=== PATIENT | male | born 1980 | race Caucasian/White ===

== ENCOUNTER 2016-09-11 09:23 | Emergency (ER) | payer BC ==
[2016-09-11 09:35] VITALS: BP 111/64
--- NOTE | 2016-09-11 10:14 | UC ---
Allergic Reaction HPI - HPI Summary HPI Summary: c/o intermittent red, raised areas over his body since Tuesday. Woke up at 4 AM with lip swelling today. hies seem to have been better while at work, but worse once he came home at night. States the only change has been laundry detergent, and does have new loveseat which was from friends with cats. never had problem with cat allergy in past. Denies any difficulty breathing. Sx started 5 days ago on/off. he has had relief with benadryl and claritin with the rash. woke up at 4 AM today with lip swollen for the 1st time. he took benadryl at 4 AM and sx did get better. He denies any swelling in his tongue, throat, wheezing or any difficulty breathing. he has had this happen with Tide detergent as a child and 2 other times eating a spice that he can't figure out. He is an adventurous eater and is confident that he did not have any new foods this week. denies shellfish and nuts. His is home washing all the clothes in their previous detergent now. - History of Current Complaint Chief Complaint: UCAllergicReaction Stated Complaint: ALLERGIC REACTION Time Seen by Provider: 09/11/16 09:37 - Allergies/Home Medications Allergies/Adverse Reactions: Allergies Allergy/AdvReac Type Severity Reaction Status Date / Time No Known Allergies Allergy Verified 09/11/16 09:29 Home Medications: Home Medications Diphenhydramine HCl [Benadryl Allergy] 50 mg PO ONCE PRN 09/11/16 [History Confirmed 09/11/16] PMH/Surg Hx/FS Hx/Imm Hx Previously Healthy: Yes Endocrine History Of: Denies: Diabetes Cardiovascular History Of: Denies: Hypertension, Pacemaker/ICD Respiratory History Of: Denies: Asthma GI/ History Of: Denies: Renal Disease - Surgical History Surgical History: Yes Surgery Procedure, Year, and Place: wisdom teeth. hip reconstruction - Family History Known Family History: Positive: Hypertension - Social History Alcohol Use: Occasionally Substance Use Type: None Smoking Status (MU): Never Smoked Tobacco Have You Smoked in the Last Year: No Review of Systems Constitutional: Negative Skin: Rash Eyes: Negative ENT: Other - lip swelling Respiratory: Negative Cardiovascular: Negative Gastrointestinal: Negative Genitourinary: Negative Motor: Negative Neurovascular: Negative Musculoskeletal: Negative Neurological: Negative Psychological: Negative All Other Systems Reviewed And Are Negative: Yes Physical Exam Triage Information Reviewed: Yes Appearance: Well-Appearing, No Pain Distress, Well-Nourished Vital Signs: Initial Vital Signs Temp 98.8 F 09/11/16 09:30 Pulse 78 09/11/16 09:30 Resp 18 09/11/16 09:30 BP 111/64 09/11/16 09:30 Pulse Ox 99 09/11/16 09:30 Vital Signs Reviewed: Yes Eye Exam: Normal ENT: Positive: Normal ENT inspection, Pharynx normal, TMs normal. Negative: Pharyngeal erythema - no swelling in uvula or tongue. lips are swollen mild- moderately, bottom right is the most obvious., Nasal drainage, Muffled/hoarse voice Dental Exam: Normal Neck exam: Normal Neck: Positive: Supple, Nontender, No Lymphadenopathy Respiratory Exam: Normal Respiratory: Positive: Lungs clear, Normal breath sounds, No respiratory distress, No accessory muscle use. Negative: Crackles, Rhonchi, Stridor, Wheezing Cardiovascular Exam: Normal Cardiovascular: Positive: RRR, No Murmur, Pulses Normal, Brisk Capillary Refill Abdominal Exam: Normal Abdomen Description: Positive: Nontender, Soft Bowel Sounds: Positive: Present Musculoskeletal Exam: Normal Neurological Exam: Normal Psychological Exam: Normal Skin: Positive: rashes - raised papules mild over right hip, b/ arms, scalp and feet only. Allergic Reaction Course/Dx - Course Course Of Treatment: prednisone 80mgs po given x 1 dose now, loratadine 10mgs and famotidine 40mgs given. We discusse risks of prednisone including but not limited to anxiety, agitation, insomnia, GI upset, elevated blood pressures and blood sugar readings, adrenal crisis and avascular necrosis of the hip. He understood me well and is very agreeable with this plan. - Differential Dx/Diagnosis Differential Diagnosis/HQI/PQRI: Angioedema, Urticaria Provider Diagnoses: angioedema, urticaria Discharge - Discharge Plan Condition: Stable Disposition: HOME Prescriptions: Methylprednisolone [Medrol Dosepak 4 MG*] 4 mg PO DAILY #1 isaura Patient Education Materials: Angioedema (ED), Urticaria (ED), General Allergic Reaction (ED) Referrals: Ross Mercer MD [Primary Care Provider] - 2 Days Additional Instructions: We discussed that you should call 911 with any signs of throat or tongue swelling, worsening of your current symptoms or any shortness of breath or wheezing. we have given you 80mgs prednisone here with 10 mgs claritin and 40mgs of famotidine (pepcid). STart the medrol dose pack tomorrow. At home I would like you to take ranitidine (zantac) 150mgs 2x/day x 14 days and with cetirizine (zyrtec) 10mgs each day x 14 days. 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
[2016-09-11] MEDS ORDERED: predniSONE TAB* 20 MG PO ONE (10:22)
[2016-09-11] MEDS ORDERED: Famotidine TAB* 20 MG PO ONE (10:24)
[2016-09-11] MEDS ORDERED: LoraTADine TAB(NF) 10 MG TAB (AUTOSUB to CETIRIZINE) PO ONE (10:24)
== END 2016-09-11 10:37 | disposition home or self-care (01) ==
LOC: UCCORT 09:23
DX: T78.3XXA Angioneurotic edema, initial encounter (principal)
CPT/HCPCS: 99212; A9270-GY; G0463; J7512

== ENCOUNTER 2018-07-16 08:56 | Emergency (ER) | payer BC ==
[2018-07-16 09:05] VITALS: BP 125/72
--- NOTE | 2018-07-16 09:21 | UC ---
Throat Pain/Nasal Anish HPI - HPI Summary HPI Summary: 37 year old male here with congestion and ear pain. Reports facial heaviness and ear pain with nasal discharge. Denies fever or chills. - History of Current Complaint Chief Complaint: UCGeneralIllness Stated Complaint: SINUSES Time Seen by Provider: 07/16/18 09:05 Onset/Duration: Sudden Onset Severity: Mild Pain Intensity: 3 Cough: Productive Associated Signs & Symptoms: Positive: Nasal Discharge, Fever. Negative: Hoarseness, Vomiting - Allergies/Home Medications Allergies/Adverse Reactions: Allergies Allergy/AdvReac Type Severity Reaction Status Date / Time No Known Allergies Allergy Verified 07/16/18 09:05 PMH/Surg Hx/FS Hx/Imm Hx Previously Healthy: Yes - Surgical History Surgical History: Yes Surgery Procedure, Year, and Place: wisdom teeth. hip reconstruction - Family History Known Family History: Positive: Hypertension - Social History Alcohol Use: Occasionally Substance Use Type: None Smoking Status (MU): Never Smoked Tobacco Have You Smoked in the Last Year: No Review of Systems All Other Systems Reviewed And Are Negative: Yes ENT: Positive: Sinus Congestion, Sinus Pain/Tenderness Respiratory: Positive: Cough Physical Exam Appearance: Well-Appearing, No Pain Distress Vital Signs: Initial Vital Signs Temp 36.6 C 07/16/18 09:03 Pulse 76 07/16/18 09:03 Resp 15 07/16/18 09:03 BP 125/72 07/16/18 09:03 Pulse Ox 100 07/16/18 09:03 Eye Exam: Normal ENT Exam: Normal ENT: Positive: Nasal congestion, Nasal drainage, Tonsillar swelling, Tonsillar exudate, Sinus tenderness Dental Exam: Normal Neck exam: Normal Respiratory Exam: Normal Cardiovascular Exam: Normal Abdominal Exam: Normal Musculoskeletal Exam: Normal Neurological Exam: Normal Psychological Exam: Normal Skin Exam: Normal Throat Pain/Nasal Course/Dx - Differential Dx/Diagnosis Differential Diagnosis/HQI/PQRI: Pharyngitis, Sinusitis, Tonsillitis Provider Diagnosis: Sinusitis Discharge - Sign-Out/Discharge Documenting (check all that apply): Patient Departure All imaging exams completed and their final reports reviewed: Yes - Discharge Plan Condition: Good Disposition: HOME Prescriptions: Amoxicillin/Clavulanate TAB* [Augmentin TAB 875*] 875 mg PO BID #20 tab Patient Education Materials: Sinusitis (ED) Referrals: Ross Mercer MD [Primary Care Provider] - - Billing Disposition and Condition Condition: GOOD Disposition: Home
== END 2018-07-16 09:25 | disposition home or self-care (01) ==
LOC: UCCORT 08:56
DX: J32.9 Chronic sinusitis, unspecified (principal)
CPT/HCPCS: 99212; G0463

== ENCOUNTER 2019-05-29 15:14 | Emergency (ER) | payer BC, OTHER ==
--- NOTE | 2019-05-29 17:49 | UC ---
Laceration HPI - HPI Summary HPI Summary: 38-year-old male presents with laceration to his left hand. Patient states that he was at work and actually struck the back of his hand on a drill bit causing a laceration over the MCP of his left ring finger. Bleeding was controlled with direct pressure prior to arrival. Reports full range of motion to the finger. Tetanus status is unknown. Denies any numbness or tingling. - History Of Current Complaint Chief Complaint: UCLaceration Stated Complaint: HAND LACERATION Time Seen by Provider: 05/29/19 17:25 Hx Obtained From: Patient Pain Intensity: 3 - Allergies/Home Medications Allergies/Adverse Reactions: Allergies Allergy/AdvReac Type Severity Reaction Status Date / Time No Known Allergies Allergy Verified 05/29/19 15:33 Home Medications: Home Medications Cimetidine [Tagamet Hb] 200 mg PO DAILY 05/29/19 [History Confirmed 05/29/19] PMH/Surg Hx/FS Hx/Imm Hx Previously Healthy: Yes GI/ History: Gastroesophageal Reflux - Surgical History Surgical History: Yes Surgery Procedure, Year, and Place: wisdom teeth. hip reconstruction - Family History Known Family History: Positive: Hypertension - Social History Occupation: Employed Full-time Lives: With Family Alcohol Use: Occasionally Substance Use Type: None Smoking Status (MU): Never Smoked Tobacco Have You Smoked in the Last Year: No - Immunization History Most Recent Tetanus Shot: unknown Review of Systems All Other Systems Reviewed And Are Negative: Yes Constitutional: Negative: Fever, Chills Skin: Positive: Other - See HPI Respiratory: Positive: Negative Cardiovascular: Positive: Negative Gastrointestinal: Positive: Negative Genitourinary: Positive: Negative Musculoskeletal: Positive: Negative Neurological: Positive: Negative Is Patient Immunocompromised?: No Physical Exam - Summary Physical Exam Summary: GENERAL APPEARANCE: Well developed, well nourished, alert and cooperative, and appears to be in no acute distress. CARDIAC: Normal S1 and S2. No S3, S4 or murmurs. Rhythm is regular. There is no peripheral edema, cyanosis or pallor. Extremities are warm and well perfused. Capillary refill is less than 2 seconds. Peripheral pulses intact. LUNGS: Clear to auscultation without rales, rhonchi, wheezing or diminished breath sounds. ABDOMEN: Positive bowel sounds. Soft, nondistended, nontender. No guarding or rebound. No masses or hepatosplenomegally. MUSKULOSKELETAL: Normal muscular development. Normal gait. EXTREMITIES: Superficial, linear laceration over the MCP of the left ring finger with bleeding controlled. Full ROM to the finger including flexion and extension to resistance. Circulation and sensation intact. SKIN: Skin normal color, texture and turgor. Triage Information Reviewed: Yes Vital Signs: Initial Vital Signs Temp 85.2 F 05/29/19 15:27 Pulse 66 05/29/19 15:27 Resp 19 05/29/19 15:27 BP 112/61 05/29/19 15:27 Pulse Ox 99 05/29/19 15:27 Vital Signs Reviewed: Yes Images Hands: 1 - Superficial, linear laceration with bleeding controlled. Procedures - Procedure Summary Procedure Summary: Procedure note: Laceration repair left hand Informed consent was obtained before procedure started and the appropriate timeout was taken. The wound was copiously irrigated by the RN prior to wound repair. The area was prepped and draped in the usual sterile fashion. Local anesthesia was achieved using 1 ml of lidocaine 1% without epinephrine. The wound margins were brought into good alignment and 2 interrupted sutures were placed using 5-0 Ethilon. Total length of wound after repair was 1 cm. Estimated blood loss was minimal. A dressing was applied by the RN to the area. Anticipatory guidance, as well as standard post-procedure care was discussed with patient. Return precautions are given. The patient tolerated the procedure well without complications. Patient is to follow up in 7-10 days for suture removal and evaluation of the laceration. Laceration Course/Dx - Course/Dx Course Of Treatment: 38-year-old male presents with laceration to his left hand. Patient states that he was at work and actually struck the back of his hand on a drill bit causing a laceration over the MCP of his left ring finger. Bleeding was controlled with direct pressure prior to arrival. Reports full range of motion to the finger. Tetanus status is unknown. Denies any numbness or tingling. Afebrile. VSS. Patient had a superficial, linear laceration over the MCP of the left ring finger with bleeding controlled. Full ROM to the finger including flexion and extension to resistance. Circulation and sensation intact. Remainder of exam was unremarkable. Patient's tetanus was updated. The wound was thoroughly irrigated with sterile saline by the RN prior to wound repair. Informed consent and a timeout was performed. Good local anesthesia was achieved using 1% lidocaine without epinephrine. The wound was repaired using 2 interrupted sutures using 5-0 Ethilon and a dressing was applied by the RN. Patient is to return in 7-10 days for suture removal. Wound care, warning symptoms, and anticipatory guidance was reviewed with the patient. Verbalizes understanding and agrees with plan of care. - Differential Dx - Laceration/Wound Differental Diagnoses: Laceration - Diagnosis Provider Diagnosis: Laceration of left hand Discharge ED - Sign-Out/Discharge Documenting (check all that apply): Patient Departure All imaging exams completed and their final reports reviewed: No Studies - Discharge Plan Condition: Stable Disposition: HOME Patient Education Materials: Care For Your Stitches (ED), Laceration (ED) Referrals: No Primary Care Phys,NOPCP [Primary Care Provider] - Additional Instructions: We updated your tetanus (Tdap) today. Be sure to notify your primary care provider so they can update their records. Leave the dressing that was applied in the clinic in place until tomorrow. Be sure to keep it clean and dry. Starting tomorrow, you may remove the dressing and shower and wash hands as normal. Do not submerge the hand under water to prevent infection. Clean the wound with a mild soap and water at least once a day. Apply some antibiotic ointment and cover with a bandage. This should be changed at least once a day or any time the dressing becomes wet or soiled. Use acetaminophen (Tylenol) or ibuprofen (Advil, Motrin) according to directions as needed for pain. Sutures will need to be removed in 7-10 days. You may return here or with your primary care provider to have this done. Watch for signs of infection including fever greater than 100.5 F, severe pain not managed with pain medication, redness that spreads, swelling of the hand/ fingers, or pus draining from the wound. Seek immediate medical attention should any of these occur. - Billing Disposition and Condition Condition: STABLE Disposition: Home - Attestation Statements Provider Attestation: Per institutional requirements, I have reviewed the chart, however, I was not consulted specifically or made aware of this patient by the midlevel provider. I did not personally evaluate, interact with , or disposition this patient.
[2019-05-29 17:53] VITALS: BP 112/65
[2019-05-29] MEDS ORDERED: Tetan/Diph/Pertus SYR(Tdap)* 0.5 ML SYR(BOOSTRIX) use SYR contains LATEX IM ONE (17:54)
[2019-05-29] MEDS ORDERED: Lidocaine 1% MPF ** 5 ML VIAL INJ ONE (17:54)
== END 2019-05-29 18:35 | disposition home or self-care (01) ==
LOC: UCEAST 15:14
DX: S61.412A Laceration without foreign body of left hand, initial encounter (principal); K21.9 Gastro-esophageal reflux disease without esophagitis; Z79.899 Other long term (current) drug therapy; W31.89XA Contact with other specified machinery, initial encounter; Y92.9 Unspecified place or not applicable
CPT/HCPCS: 12001; 12002; 90471; 90715; 99202; G0463

== ENCOUNTER 2019-06-06 08:24 | Emergency (ER) | payer SELFPAY ==
[2019-06-06 08:43] VITALS: BP 119/67
--- NOTE | 2019-06-06 08:51 | UC ---
Skin Complaint HPI - HPI Summary HPI Summary: 38-year-old male comes in with a chief complaint of suture removal. On May 29, 2019 patient got a 1 cm laceration on the left hand over the ring finger MCP. There's been no redness no drainage patient feels well. Laceration healing well. - History of Current Complaint Chief Complaint: UCUpperExtremity Time Seen by Provider: 06/06/19 08:42 Stated Complaint: SUTURE REMOVAL Pain Intensity: 0 - Allergy/Home Medications Allergies/Adverse Reactions: Allergies Allergy/AdvReac Type Severity Reaction Status Date / Time No Known Allergies Allergy Verified 05/29/19 15:33 PMH/Surg Hx/FS Hx/Imm Hx Previously Healthy: Yes GI/ History: Gastroesophageal Reflux - Surgical History Surgical History: Yes Surgery Procedure, Year, and Place: wisdom teeth. hip reconstruction - Family History Known Family History: Positive: Hypertension - Social History Alcohol Use: Occasionally Substance Use Type: None Smoking Status (MU): Never Smoked Tobacco Have You Smoked in the Last Year: No - Immunization History Most Recent Tetanus Shot: unknown Review of Systems All Other Systems Reviewed And Are Negative: Yes Constitutional: Positive: Negative Skin: Positive: Other - SEE HPI Eyes: Positive: Negative ENT: Positive: Negative Respiratory: Positive: Negative Cardiovascular: Positive: Negative Gastrointestinal: Positive: Negative Motor: Positive: Negative Neurovascular: Positive: Negative Musculoskeletal: Positive: Negative Neurological: Positive: Negative Psychological: Positive: Negative Is Patient Immunocompromised?: No Physical Exam Triage Information Reviewed: Yes Appearance: Well-Appearing, No Pain Distress, Well-Nourished Vital Signs: Initial Vital Signs Temp 97.8 F 06/06/19 08:39 Pulse 63 06/06/19 08:39 Resp 16 06/06/19 08:39 BP 119/67 06/06/19 08:39 Pulse Ox 99 06/06/19 08:39 Vital Signs Reviewed: Yes Eye Exam: Normal Eyes: Positive: Conjunctiva Clear Neck: Positive: Supple Musculoskeletal: Positive: Strength Intact, ROM Intact Neurological: Positive: Alert Psychological: Positive: Age Appropriate Behavior Skin: Positive: Other - Left knuckle over the fourth MCP of the ring finger has a healing 1 cm linear laceration with 2 sutures in it which I removed. No drainage is no erythema finger and hand have full range of motion normal capillary refill no sensation deficit. Course/Dx - Diagnoses Provider Diagnosis: Encounter for removal of sutures Discharge ED - Sign-Out/Discharge Documenting (check all that apply): Patient Departure All imaging exams completed and their final reports reviewed: No Studies - Discharge Plan Condition: Stable Disposition: HOME Patient Education Materials: Stitches Removal (ED) Referrals: [facility] [place] [facility] [Outside] Additional Instructions: FOLLOW UP WITH YOUR DOCTOR IF NOT COMPLETELY IMPROVED. GET RECHECKED SOONER IF YOUR CONDITION WORSENS OR ANY QUESTIONS OR CONCERNS. - Billing Disposition and Condition Condition: STABLE Disposition: Home
== END 2019-06-06 09:02 | disposition home or self-care (01) ==
LOC: UCEAST 08:24
DX: S61.215D Laceration without foreign body of left ring finger without damage to nail, subsequent encounter (principal); X58.XXXD Exposure to other specified factors, subsequent encounter
CPT/HCPCS: 99211; G0463